=== PATIENT | female | born 1955 | race Two or more races ===

== ENCOUNTER 2022-01-04 05:20 | Day surgery (SDC) | payer OTHER ==
[~2022-01-04 05:20] MED LIST: NAPR500T14 PO
== END 2022-01-04 11:30 | disposition home or self-care (01) ==
LOC: CIR.AMB 05:20
PROVIDERS: ATTEND Orthopaedic Surgery
DX: M75.121 Complete rotator cuff tear or rupture of right shoulder, not specified as traumatic (principal); Z88.0 Allergy status to penicillin